=== PATIENT | female | born 1960 | race African-American/Black ===

== ENCOUNTER 2024-11-04 12:33 | Emergency (ER) | payer SELFPAY ==
[~2024-11-04] VITALS: Ht 162.6 cm; Wt 82.0 kg
[2024-11-04 12:36] VITALS: O2SAT 98
[2024-11-04] MEDS: ACETAMINOPHEN 500MG TABLET PO ONE (14:28)
[2024-11-04] MEDS ORDERED: ACET-2708 MT (14:38)
[2024-11-04 14:42] VITALS: BP 143/62; PULSE 87; RESP 16; TEMP 36.9; O2SAT 98
== END 2024-11-04 14:43 | disposition home or self-care (01) ==
LOC: ER 13:08
DX: S32.009A Unspecified fracture of unspecified lumbar vertebra, initial encounter for closed fracture (principal); S09.90XA Unspecified injury of head, initial encounter; Z99.2 Dependence on renal dialysis; N18.6 End stage renal disease; W19.XXXA Unspecified fall, initial encounter; Y93.89 Activity, other specified; Y92.89 Other specified places as the place of occurrence of the external cause; Y99.8 Other external cause status
CPT/HCPCS: 72131; 99284